=== PATIENT | female | born 1985 | race Caucasian/White ===

== ENCOUNTER 2021-06-20 21:36 | Emergency (ER) | payer OTHER ==
[~2021-06-20] VITALS: Ht 167.6 cm; Wt 73.0 kg
[2021-06-20] MEDS ORDERED: METOCLOPRAMIDE HCL 10 MG/2 ML VIAL. IM ONE (21:45)
[2021-06-20] MEDS ORDERED: ONDANSETRON ODT 4 MG TAB.RAPDIS ONE (21:45)
--- NOTE | 2021-06-20 21:48 | PHYS DOC ---
Adult General HPI HPI Patient is a otherwise healthy 36-year-old female who presents to the emergency department from the bar after getting drunk. Per patient and family, she broke up with her boyfriend and was at the bar and had at least 5 shots of alcohol. Denies any other medications. Denies any other drug use. Denies any traumas, headache, changes in vision, chest pain, shortness of breath, abdominal pain, dysuria, hematuria. Did have an episode of nonbloody nonbilious emesis. Review of Systems Review of Systems Review of systems otherwise unremarkable except noted in HPI Physical Exam Physical Exam Constitutional: Well developed, well nourished, no acute distress, non-toxic appearance. [] HENT: Normocephalic, atraumatic, oropharynx moist, Eyes: conjunctiva normal, no discharge. [] Neck: Normal range of motion, no tenderness, supple, no stridor. [] Cardiovascular:Heart rate regular rhythm, no murmur [] Lungs & Thorax: Bilateral breath sounds clear to auscultation [] Abdomen: soft, no tenderness, no masses, no pulsatile masses. [] Skin: Warm, dry, no erythema, no rash. [] Extremities: No tenderness, no cyanosis, no clubbing, ROM intact, no edema. [] Neurologic: Alert and oriented X 3, normal motor function, normal sensory function, able to sit, stand and walk without issue, no focal deficits noted. [] Psychologic: Affect normal, judgement abnormal, mood normal. [] No SI, no HI, no hallucinations. EKG EKG [] Radiology/Procedures Radiology/Procedures [] Heart Score C/O Chest Pain: No Risk Factors: Risk Factors: DM, Current or recent (<one month) smoker, HTN, HLP, family history of CAD, obesity. Risk Scores: Risk Factors: DM, Current or recent (<one month) smoker, HTN, HLP, family history of CAD, obesity. Course & Med Decision Making Course & Med Decision Making Patient is a 36-year-old female presents intoxicated with an episode of nausea and vomiting brought in by her family Vital signs not concerning. Physical exam noted above. Patient went to sleep in the ED. On reassessment patient was feeling better was awake and alert and able to take p.o. liquids without issue. Clinically sober, awake and alert in no acute distress unable to sit, stand and walk without issue. Discussed with patient the risks of alcohol intoxication and discussed drinking in moderation. Advised to follow-up with primary care as needed. Gave return precautions to the ED. Patient grateful, verbalized understanding and agreed with plan of discharge. Dragon Disclaimer Dragon Disclaimer This electronic medical record was generated, in whole or in part, using a voice recognition dictation system. Departure Departure: Impression: Primary Impression: Alcohol intoxication Disposition: HOME / SELF CARE / HOMELESS Condition: GOOD Referrals: CARISSA MALDONADO Patient Instructions: Alcohol Intoxication Additional Instructions: Thank you for coming into the emergency department tonight and allowing us to take care of you. Please read the attached information carefully to go back over some of the things we discussed. Please drink in moderation as excessive amounts of alcohol can cause poisoning which could lead to significant illness, disability and in the worst case scenario. While drinking, you should also be drinking plenty of other fluids and maintaining intake of proper nutrition. Please follow-up with your primary care physician when you can update on your ED visit and set up a follow-up as needed. Please come back with new or concerning symptoms as discussed. TAY COYLE MD Jun 20, 2021 21:48
[2021-06-20] MEDS ORDERED: ONDANSETRON ODT 4 MG TAB.RAPDIS PO ONE (22:00)
[2021-06-21 00:10] VITALS: BP 107/73
== END 2021-06-21 00:40 | disposition home or self-care (01) ==
LOC: ER 21:36
DX: F10.129 Alcohol abuse with intoxication, unspecified (principal); R11.2 Nausea with vomiting, unspecified; Y90.9 Presence of alcohol in blood, level not specified
CPT/HCPCS: 96372; 99285; J2765; Q0162; 99284